=== PATIENT | male | born 1985 | race Caucasian/White ===

== ENCOUNTER 2020-09-14 20:30 | Emergency (ER) | payer SELFPAY ==
[2020-09-14 20:39] VITALS: BP 152/100; PULSE 72; RESP 18; TEMP 37.1; O2SAT 100
--- NOTE | 2020-09-14 20:46 | PC.NURSE ---
patient brought back to ED room 16 with possible spider bite to his left outer calf area. see triage notes. alert. oriented. sitting on stretcher. assessments documented. denies known fever at home. waiting for further orders from provider.
--- NOTE | 2020-09-14 20:46 | ED.SKABFB ---
HPI - Skin/Abscess/Foreign Bdy General Chief complaint: Skin/Abscess/Foreign Body Stated complaint: spider bite on leg Time Seen by Provider: 09/14/20 20:40 History of Present Illness HPI narrative: Pain, swelling to the left lateral calf for about the past 10 days. Developed a draining wound which seemed to be healing. The pain has mostly resolved, but he decided to come in now because the swelling has spread into the foot. No systemic symptoms. Related Data Allergies Allergy/AdvReac Type Severity Reaction Status Date / Time No Known Drug Allergies Allergy Verified 10/22/12 23:19 Review of Systems Review of Systems: All systems reviewed & are unremarkable except as noted in HPI and below Constitutional: Constitutional: Denies chills and Denies fever(s) Cardiovascular: Cardiovascular: Denies chest pain Respiratory: Respiratory: Denies dyspnea Gastrointestinal: Gastrointestinal: Denies abdominal pain Neurologic: Denies dizziness, Denies numbness and Denies weakness Exam Const: General: healthy appearing, no acute distress and alert Orientation/consciousness: patient oriented x3 HENMT: Head: normal to inspection Neck: Neck: normal visual inspection Cardio: Jugular venous distension: no JVD GI: GI Palp: Yes Soft to palpation and No Tenderness to palpation present (GI) Skin: Other: erythema and induration to the left lateral calf with central wound draining scant purulent material. Neuro: General: patient oriented x3 and moves all extremities Speech: normal speech Extrem: General: edema left (1+ foot and ankle edema) Psych: Appearance: well kempt Affect: normal affect Course Vital Signs Vital signs: Vital Signs Temperature 37.1 C 09/14/20 20:39 Pulse Rate 72 09/14/20 20:39 Respiratory Rate 18 09/14/20 20:39 Blood Pressure 152/100 H 09/14/20 20:39 Pulse Oximetry 100 09/14/20 20:39 Temperature 37.1 C 09/14/20 20:39 Pulse Rate 72 09/14/20 20:39 Respiratory Rate 18 09/14/20 20:39 Blood Pressure 152/100 H 09/14/20 20:39 Pulse Oximetry 100 09/14/20 20:39 Procedures Other Procedure Procedure 1: Other Procedure: No remaining drainable fluid pocket o bedside US MDM - Skin/Abscess/Foreign Bdy Differential Diagnosis Differential diagnosis: Likely abscess of skin or subcutaneous tissue and cellulitis Discharge Plan Discharge Clinical Impression: Cellulitis and abscess of left lower extremity Patient Disposition: Home, Self-Care Condition: Stable Instructions: Antibiotic Form, Abscess (ED) Prescriptions: New sulfamethoxazole-trimethoprim [Bactrim DS] 800-160 mg tablet 1 tablet PO Q12H Qty: 14 RF: 0 Follow-up/Referrals: PHYSICIAN,THERMOGRAPH OPERATOR [Primary Care Provider] -
[2020-09-14 21:20] VITALS: BP 128/80; PULSE 80; TEMP 37.1; O2SAT 100
== END 2020-09-14 21:35 | disposition home or self-care (01) ==
PROVIDERS: Emergency Provider Emergency Medicine
DX: L03.116 Cellulitis of left lower limb (principal); L02.416 Cutaneous abscess of left lower limb
CPT/HCPCS: 99283; A9270

== ENCOUNTER 2021-09-23 10:31 | Emergency (ER) | payer OTHER, SELFPAY ==
--- NOTE | ~2021-09-23 | XR_ITS ---
EXAMINATION: XR ankle LT min 3V DATE: 09/23/2021 10:53 INDICATION: Lateral sided left ankle pain post twisting injury TECHNIQUE: Anteroposterior, oblique, mortise, and lateral views of the left ankle were obtained. COMPARISON: None. FINDINGS: Alignment is normal. No fracture. Joint spaces are well maintained. Tiny heterotopic ossification ne ar the tip of the medial malleolus likely sequela of chronic deltoid ligament sprain. Prominent soft tissue swelling about the lateral malleolus suggesting acute lateral ankle sprain. No ankle joint eff usion. IMPRESSION: 1. No osseous abnormality. Reviewed, dictated and finalized at location A. NSED MASSAGE THERAPIST IMPRESSION: 1. No osseous abnormality.
[2021-09-23 10:35] VITALS: BP 153/105; PULSE 85; RESP 18; TEMP 36.6; O2SAT 98
--- NOTE | 2021-09-23 11:24 | ED.LOWEXIN ---
HPI - Extremity Injury (Lower) General Chief Complaint: Extremity Injury, Lower Stated Complaint: ankle injury Time Seen by Provider: 09/23/21 10:38 Source: RN notes reviewed History of Present Illness HPI Narrative: Patient presents emerged department from home for left ankle pain. Patient states that prior to arrival he was working on a deck that is approximately 4 feet high. He states that they were securing boards on the deck, the boards and moved and he had fallen down through the day states that his left ankle had been inverted and initially deformity was present and he was able to pop the foot back into place states he has had pain with walking on the foot since that time denies any other trauma or injury states he is not take anything for the pain Related Data Allergies Allergy/AdvReac Type Severity Reaction Status Date / Time No Known Drug Allergies Allergy Unknown Other Verified 09/23/21 10:48 Review of Systems Review of Systems: Gen.: Denies fevers or chills Musculoskeletal: See HPI Neuro: Denies numbness, tingling, weakness Skin: Denies rash Endo: Denies DM PMFSH Past Medical History Medical History (Updated 09/23/21 @ 11:24 by Blayne Johnston DO) Patient denies significant medical history Social History Social History (Updated 09/23/21 @ 11:24 by Blayne Johnston DO) Smoking status: Never smoker Exam Narrative: APPEARANCE: No acute distress, nontoxic, resting in bed Eyes: EOMI HEENT: Normocephalic, atraumatic, RESPIRATORY: No respiratory distress MUSCULOSKELETAl: Tender palpation over the left lateral and medial malleolus with swelling present no ecchymosis no tenderness of the base of the fifth metatarsal no tenderness of the proximal fibula dorsalis pedis pulse 2+ neurovascular intact NEURO: Awake and alert. Following commands, speech normal, no focal deficits SKIN:: Warm, dry. Normal Color no rash or lesions Course Course Emergency Course: Discussed Dr. Johnson presentation work-up recommends patient placed in a stirrup splint as question of possible dislocation that was relocated by the patient with follow-up as an outpatient Discussed with patient results of workup and diagnosis. Discussed need for follow-up with primary care, proper use of medication, and reasons to return to the emergency department. Patient understands and agrees to current treatment plan Vital Signs Vital signs: Vital Signs Temperature 97.8 F 09/23/21 10:35 Pulse Rate 85 09/23/21 10:35 Respiratory Rate 18 09/23/21 10:35 Blood Pressure 153/105 H 09/23/21 10:35 Pulse Oximetry 98 09/23/21 10:35 Temperature 97.8 F 09/23/21 10:35 Pulse Rate 85 09/23/21 10:35 Respiratory Rate 18 09/23/21 10:35 Blood Pressure 153/105 H 09/23/21 10:35 Pulse Oximetry 98 09/23/21 10:35 Procedures Orthopedic Splinting/Casting Injury #1: Additional Comments: Splint was placed by the emergency department cooling tower technician under my supervision. The patient was neurovascularly intact both pre-and post procedure. MDM - Extremity Injury (Lower) Imaging Data Radiologist's impression: ITS Impressions Ankle X-Ray 09/23/21 10:56 IMPRESSION: 1. No osseous abnormality. Discharge Plan Discharge Patient Disposition: Home, Self-Care Condition: Stable Instructions: Antibiotic Form, Ankle Sprain (ED) Additional Instructions: Return for increasing pain numbness or tingling in the extremities or any other symptoms of concern Prescriptions: New ibuprofen [IBU] 600 mg tablet 600 mg PO Q6H PRN (Reason: pain) Qty: 20 RF: 0 Follow-up/Referrals: PHYSICIAN,LICENSED PROFESSIONAL COUNSELOR [Primary Care Provider] - Estiven Johnson MD [Physician] - (Follow-up in 2 to 3 days for the orthopedic treatment and evaluation) Time of Disposition: 12:16
[2021-09-23] MEDS: IBUPROFEN 600 MG TABLET PO (11:28)
[2021-09-23 12:30] VITALS: BP 142/89; PULSE 80; RESP 16; O2SAT 99
== END 2021-09-23 12:31 | disposition home or self-care (01) ==
PROVIDERS: Emergency Provider Emergency Medicine
DX: S93.402A Sprain of unspecified ligament of left ankle, initial encounter (principal); W13.3XXA Fall through floor, initial encounter
CPT/HCPCS: 29515; 73610; 99283; A9270

== ENCOUNTER 2021-12-02 08:00 | Outpatient (RCR) | payer OTHER, SELFPAY ==
--- NOTE | 2021-11-10 08:59 | PTOPEVAL ---
PHYSICAL THERAPY EVALUATION AND PLAN OF CARE 11-10-21 Thank you for referring Estiven Dumont to [facility] for the diagnosis of L ankle injury. Maxime is scheduled to be seen for therapy? 2 x/week for 4 weeks. Please review, sign, date and return this plan of care MATTHEW. I agree with and certify that the following plan of care is medically necessary. Referring Physician Date Attending Provider: Pasquale Huddleston APN *PT Outpatient Evaluation Document 11/10/21 08:05 TIFFANIE (Rec: 11/10/21 08:59 TIFFANIE [id number]) Past Medical History Source of Past Medical History Patient Neurological History Hx Neurological Disorders No Significant History Cardiovascular History Hx Heart Murmur Yes Respiratory History Hx Respiratory Disorders No Significant History Gastrointestinal History Hx Gastrointestinal Disorders No Significant History Genitourinary History Hx Genitourinary Disorders No Significant History Musculoskeletal History Hx Other Musculoskeletal Disorders Yes: R shoulder chronic pain Hematological History Hx Hematological Disorders No Significant History Endocrine History Hx Endocrine Disorders No Significant History HEENT History Hx HEENT Disorders No Significant History Evaluation Information Problem Diagnosis L ankle injury Onset Sep 23, 2021 Subjective Information at work, working on a [employer] OTR, Query Text:As Reported By Patient/ stepped on deck and foot went Family through deck and twisted; to hospital, x ray negative; had ankle splint and crutches for few weeks; no longer using splint or crutches; did not work due to injury; 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; doing walking, about 10 minutes for fitness, but not doing any ankle exercises; Previous Treatments Previous Treatments For This Problem no therapy ankle Prior Level of Function Activity Level (Last 3 Months) Occupation construction work Comments Additional Prior Level of Function prior to ankle injury indep Comments with all tasks and not limited with any activities; Pain Assessment Timing of Pain Assessment Timing of Pain Assessment Assessment Pain Scale Pain Scale Used Numeric (1 - 10) Self Report Pain Assessment Left Ankle(s) Reported Pain Level 1 Pain Description Dull,Numbness Radicular Pain Location anterior ankle joint, medial
--- NOTE | 2021-11-23 08:34 | PCPTNOTE ---
pt did not show for today's treatment appointment.
--- NOTE | 2021-11-30 10:18 | PCPTNOTE ---
Addendum entered by Sue Bautista, PT 11/30/21 15:45: called and left a voice message for pt with reminder for next appt 2-2 at 8:00 for reeval Original Note: pt did not show for today's treatment; attempted to call pt, but our phone system is down at this time...will call later today.
--- NOTE | 2021-12-02 09:19 | PTOPEVAL ---
PHYSICAL THERAPY RE-EVALUATION 12-02-21 Refer to the clinical summary below, for his status today, compared to the initial evaluation. The goals were partially achieved. He has a follow up appointment next week. If PT is to continue, please issue him a new script. Thank you for referring Estiven Dumont to [facility].? Please review, sign, date and return this reevaluation MATTHEW. I agree with and certify that the following plan of care is medically necessary. Referring Physician Date Attending Provider: Pasquale Huddleston APN Document 12/02/21 08:10 TIFFANIE (Rec: 12/02/21 09:12 TIFFANIE [id number]) Assessment Status Re-evaluation Subjective Information Maxime reports: ankle is stronger Query Text:As Reported By Patient/ , but still have pain; see dr Family next week, on ; have been doing the exercises; feel like it is taking too long to get better; Pain Assessment Timing of Pain Assessment Timing of Pain Assessment Assessment Pain Scale Pain Scale Used Numeric (1 - 10) Self Report Pain Assessment Left Ankle(s) Reported Pain Level 1 Pain Description Soreness Radicular Pain Location numbness over 2,3,4, toes- all time, increase with toe flexion/extension Pain Frequency Chronic,Continuous Other Pain Description ankle feels loose Lowest Pain Intensity 1 Greatest Pain Intensity 4 Pain Aggravating Factors Walking Other Pain Aggravating Factors walking/standing 30-45 min Pain Score Pain Score 1: Self Report Additional Pain Score Comments no issues with sleeping; fluidotherapy and leukotape helps; have neoprene ankle sleeve and it helps pain; pt reports there is swelling at end of day and after walking; have some twitching in toes and foot; leukotape applied over L ankle - instructed pt on application of tape and can use at home; reinforced use of ice, elevation and brace PRN for pain control Interventions Used Interventions Used By Clinicians Education,Exercise Pain Relief Interventions Used By Elevation,Inactivity/Rest, Patient Medication Other Alleviating Interventions take tylenol Lower Extremity Range of Motion General Lower Extremity Range of Motion Gross Lower Extremity Range of Motion
--- NOTE | 2022-01-08 13:00 | PCPTNOTE ---
PHYSICAL THERAPY DISCHARGE 01-08-22 Attending Provider: Pasquale Huddleston APN Patient:Estiven Dumont Date of :1985 Maxime has not returned for any further treatments since the reevaluation on 12/02/2021, therefore he will be discharged at this time. Refer to the reeval report for his status at the last session. Thank you for referring Mr. Dumont to [facility]. Please review, sign, date and return this discharge summary MATTHEW. I have been updated about the patient's current status and I agree with discharge from the above service at this time. Referring Physician Date
== END 2022-01-08 16:28 | disposition home or self-care (01) ==
LOC: ANHPT 08:00
PROVIDERS: PCP Nurse Practitioner; Visit Provider Nurse Practitioner
DX: S99.912D Unspecified injury of left ankle, subsequent encounter (principal)
CPT/HCPCS: 97022; 97110; 97140; 97161